=== PATIENT | female | born 1980 | race Caucasian/White ===

== ENCOUNTER 2018-07-03 20:19 | Emergency (ER) | payer OTHER ==
[~2018-07-03] VITALS: Ht 162.6 cm; Wt 63.5 kg
[2018-07-03] MEDS ORDERED: LEVORA-28 TABL1 EACH (20:38)
[2018-07-03] MEDS ORDERED: WELLBUTRIN XL300 MG (20:39)
[2018-07-03] MEDS ORDERED: ATIVAN1 M1 (20:39)
[2018-07-03] MEDS ORDERED: BUSPIRONE HCL5 GM (20:39)
== END 2018-07-03 22:11 | disposition home or self-care (01) ==
LOC: ER 20:19
DX: S68.127A Partial traumatic metacarpophalangeal amputation of left little finger, initial encounter (principal); W45.8XXA Other foreign body or object entering through skin, initial encounter; Y93.89 Activity, other specified; Y92.098 Other place in other non-institutional residence as the place of occurrence of the external cause; Y99.8 Other external cause status